=== PATIENT | male | born 1935 | race Caucasian/White ===

== ENCOUNTER 2016-08-20 08:31 | Emergency (ER) | payer MEDICARE, OTHER ==
[~2016-08-20] VITALS: Ht 180.3 cm; Wt 88.6 kg
[2016-08-20 08:34] VITALS: BP 199/87; PULSE 55; RESP 15; O2SAT 96
--- NOTE | 2016-08-20 09:10 | ED.REPORT ---
HPI-Extremity Problem Lower Date of Service Aug 20, 2016 ED Provider: Chaz Xavier MD Pt is an 81 year old male with a hx of cardiac bypass and HTN complaining of right hip pain shooting down to the knee which has been increasing since 1 week ago. Denies back pain, numbness, tingling, incontinence, problems with ambulation. He reports that he slipped on ice on July 09 2016 and landed on the edge of his right knee and hip. Symptoms had resolved until 1 week ago. Had a negative x-ray at [facility] right after the fall. He reports similar symptoms a few years ago, and had a Cortizone shot with some relief. He denies recurrent trauma or fall. Pt is currently taking oxycodone and has 1 pill left of prednisone. Nursing Notes Stated Complaint: RIGHT HIP PAIN Chief Complaint: Extremity Trauma Nursing Notes Reviewed: Yes Allergies: Coded Allergies: lisinopril (Verified Allergy, Intermediate, 08/20/16) codeine (Verified Adverse Reaction, Intermediate, I PASSED OUT, 08/20/16) General Time Seen by MD: 09:04 Chief Complaint Hip injury right Hx Obtained From: Patient Arrived By: Walk-in Onset Occurred: 1 week ago Symptom Duration: Since onset Caused by: Fall on ground Location: : Hip right Quality: Painful Severity: Current: Severe Severity: Maximum: Severe Associated with: Denies: Unable to bear weight, Unable to move joint, Unable to walk Recent Healthcare: No recent hospitalization, Recent doctor visit Similar Sx Previous: Yes Past Medical History Past Medical History Reports: Hypertension Past Surgical History Bypass Smoking History Unknown if Ever Smoker Ambulatory Status Independent Review of Systems Musculoskeletal: Reports: Extremity pain, Joint pain, Denies: Back pain Neurologic: Denies: Numbness Complete sys rev & neg: except as marked. Male: Denies Incontinence Physical Exam Initial Vital Signs Vital Signs (First) Date Time Temp Pulse Resp B/P Pulse Ox O2 Delivery O2 Flow Rate FiO2 08/20/16 08:34 36.4 55 15 199/87 96 Room Air Initial VS: Reviewed General/Constitutional: Well-developed, Well-nourished Head / Eyes: Atraumatic, Normocephalic, PERRL ENT: Mucous membranes moist, Conjunctiva normal, No scleral icterus Neck: Supple, Non-tender, Full range of motion Respiratory: Breath sounds normal, Clear to auscultation, No respiratory distress Cardiovascular: Regular rate & rhythm, Heart sounds normal, Intact distal pulses Back: No CVA tenderness Skin: Warm, Dry, No cyanosis Neurologic: Alert, Oriented, Nonfocal Psychiatric: Mood/affect normal, Behavior normal, Normal thought content Lower Extremity / Pelvis / MS: Full range of motion, Neurologic intact, Vascular intact, Pelvis stable Right Hip: FROM, pain with flexion and external rotation. Interpretation & Diagnostics X-Ray Interpretation Xray Interpretation: Right Hip: IMPRESSION: No definite, displaced fractures are seen. If there is point tenderness (or other clinical suspicion for a fracture not seen on these images) then a dedicated CT could be considered for further evaluation, as clinically appropriate. Dictated by: Wang Anthony M.D. on 08/20/2016 at 9:58 X-Ray Ordered: Hip right Interpretation / Wet Read by: Interpret - Radiologist Re-Eval/Medical Decision Med Decision/Clinical Course 81-year-old male presenting complaining of right hip pain 1 month. Patient reports he fell on his right hip one month ago and had x-ray at outside hospital that they told him was "probably okay". He reports the pain improved and resolved then returned 5 days ago approximately. He reports it is located in his right hip. He denies low back pain. No red flag symptoms. No neurological deficits. Mild tenderness on right hip range of motion. Full range of motion. X-ray no evidence of fracture with mild osteoarthritis. Suspect pain likely due to arthritis versus trauma. His pain was improved with Toradol. Recommend he follow-up with his orthopedic surgeon and primary doctor for management of his right hip osteoarthritis and pain. Return precautions given. Re-Evaluation/Progress : Time of Eval: 11:11 Patient Status: Condition improved Re-Evaluation/Progress Note: Discussed x ray results and plan for discharge. Pt understands and agrees with plan. Counseled Regarding: Diagnosis, Lab results, Need for follow-up, When/why to return to ED Discharge & Departure Impression: Primary Impression: Right hip pain Additional Impression: Osteoarthritis Osteoarthritis location: hip Osteoarthritis type: unspecified Laterality: right Qualified Code: M16.11 - Unilateral primary osteoarthritis, right hip Disposition: Home Discharge Condition All VS Reviewed: Yes Condition: Improved Additional Instructions: Your X ray did not show signs of a fracture. Your right hip does appear to have arthritis which may have been aggravated. If your pain continues, follow up with your orthopedic surgeon about a steroid injection in the hip joint. Continue the prednisone prescription you have, but do not renew it. The risks of taking oral steroids skilled nursing are too high, so it would be better to have the injection. Take Ibuprofen as needed for pain. Return to the ER with any new or worsening symptoms. Do not take the extra strength Ibuprofen for longer than a week because it could be detrimental. Continue moving around and follow up with your primary care doctor in the next week for physical therapy if pain persists. Do not go on any long hikes, but low impact stuff such as swimming and biking are fine. You can take Ibuprofen next at around 6 pm tonight. Referrals: Oscar Yang MD (Family) Scribe Attestation Portions of this note were transcribed by Amparo. I, Dr. Xavier personally performed the history, physical exam and medical decision-making; I reviewed and confirmed the accuracy of the information in the transcribed note. Signed by: Edie Giles, 08/20/2016 and 1112. copies to: Oscar Yang MD, Ben M MD Aug 20, 2016 09:10 AMPARO MILLER Aug 20, 2016 10:20
[2016-08-20] MEDS ORDERED: Ketorolac 15 mg/mL Inj IM ONE (10:15)
--- NOTE | 2016-08-20 11:01 | DRSVH ---
PROCEDURE: X-RAY PELVIS W/LAT HIP (RT) ([id number]) INDICATIONS: hip pain trauma TECHNIQUE: AP pelvis with lateral view(s) of the right hip. COMPARISON: None. FINDINGS: Bones: No fractures or dislocations. Pelvic ring appears intact. No suspicious bony lesions. Degenerative changes are seen, with moderate to severe superior joint space narrowing seen on the lef t, with associated remodeling changes. Mild to moderate right hip degenerative changes are seen. Age -appropriate lower lumbar spine degenerative changes are noted. Soft tissues: The visualized bowel gas pattern is normal. No suspicious soft tissue calcifications. IMPRESSION: No definite, displaced fractures are seen. If there is point tenderness (or other clinical suspicion for a fracture not seen on these images) th en a dedicated CT could be considered for further evaluation, as clinically appropriate. Dictated by: Wang Anthony M.D. on 08/20/2016 at 9:58 Approved by: Wang Anthony M.D. on 08/20/2016 at 9:59
[2016-08-20 11:36] VITALS: BP 161/84; PULSE 58; RESP 16; O2SAT 95
== END 2016-08-20 11:30 | disposition home or self-care (01) ==
LOC: SED 08:31
DX: M25.551 Pain in right hip (principal); M16.11 Unilateral primary osteoarthritis, right hip; W18.39XA Other fall on same level, initial encounter; Y93.89 Activity, other specified; Y92.89 Other specified places as the place of occurrence of the external cause; Y99.8 Other external cause status; I10 Essential (primary) hypertension; Z95.1 Presence of aortocoronary bypass graft; Z88.5 Allergy status to narcotic agent; Z88.8 Allergy status to other drugs, medicaments and biological substances
CPT/HCPCS: 73501; 96372; 99284; J1885